=== PATIENT | female | born 1985 | race Caucasian/White ===

== ENCOUNTER → 2018-05-29 | Outpatient (REF) | payer OTHER ==
[2018-06-04 14:18] LABS: HPV HYBRID CAPTURE II Negative (Negative)
== END ==
LOC: M LAB REF 09:16
DX: Z12.4 Encounter for screening for malignant neoplasm of cervix (principal)
CPT/HCPCS: 88142

== ENCOUNTER → 2020-10-25 | Outpatient (REF) | payer OTHER ==
[2020-10-25 13:35] LABS: BASO % 0.5 % (0.0-1.0); EOS # 0.2 10^3/uL (0.0-0.5); EOS % 2.8 % (0.0-3.0); HEMATOCRIT 40.9 % (36.0-47.0); HEMOGLOBIN 13.4 g/dl (12.0-15.5); LYMPH % 34.7 % (24.0-44.0); MEAN CORPUSCULAR HEMOGLOBIN 28.8 pg (27.0-33.0); MEAN CORPUSCULAR HGB CONC 32.8 g/dl (32.0-36.5); MONO # 0.6 10^3/uL (0.0-0.8); MONO % 10.6 % (0.0-5.0); NEUTROPHILS # 2.9 10^3/uL (1.5-8.5); NEUTROPHILS % 51.4 % (36.0-66.0); PLATELET COUNT, AUTOMATED 286 10^3/uL (150-450); RED BLOOD COUNT 4.65 10^6/uL (4.00-5.40); WHITE BLOOD COUNT 5.7 10^3/uL (4.0-10.0)
[2020-10-25 14:10] LABS: ALBUMIN 4.1 GM/DL (3.2-5.2); ALT/SGPT 22 U/L (12-78); BILIRUBIN,TOTAL 0.3 MG/DL (0.2-1.0); BLOOD UREA NITROGEN 17 MG/DL (7-18); CALCIUM LEVEL 8.9 MG/DL (8.5-10.1); CARBON DIOXIDE LEVEL 27 MEQ/L (21-32); CHLORIDE LEVEL 104 MEQ/L (98-107); CHOLESTEROL LEVEL 225 MG/DL (<200); CHOLESTEROL RISK RATIO 3.813 (<5); CREATININE FOR GFR 0.75 MG/DL (0.55-1.30); FREE T4 1.11 NG/DL (0.76-1.46); GLOMERULAR FILTRATION RATE > 60.0 (>60); GLUCOSE, FASTING 82 MG/DL (70-100); HDL CHOLESTEROL 59 MG/DL (>40); LDL CHOLESTEROL 147 MG/DL (<100); NON-HDL-C 166 MG/DL; POTASSIUM SERUM 3.8 MEQ/L (3.5-5.1); SODIUM LEVEL 142 MEQ/L (136-145); TRIGLYCERIDES LEVEL 95 MG/DL (<150)
[2020-10-25 15:08] LABS: TOTAL 25(OH) VITAMIN D 17.2 NG/ML (30.0-100.0)
[2020-10-25 16:19] LABS: HEMOGLOBIN A1c 5.4 %
== END ==
LOC: M LAB REF 12:52
PROVIDERS: ATTEND Nurse Practitioner Family
DX: F41.9 Anxiety disorder, unspecified (principal); E66.9 Obesity, unspecified; E55.9 Vitamin D deficiency, unspecified; Z13.228 Encounter for screening for other metabolic disorders

== ENCOUNTER → 2021-03-08 | Outpatient (CLI) | payer OTHER ==
--- NOTE | 2021-03-08 11:50 | PFTRPT ---
Site: [facility], [address] [place], [address] ID: [id number] Name: STEPHON ROMO Visit Date: 03/08/2021 Second ID: [id number] Referring Doctor: Aixa Toscano M.D. Reviewing Doctor: Jeff Velez MD V[employer]isher [employer]: Syed CHRISTIAN RRT Age: 35 : 1985 Sex: Female Race: Height: 62.00 Inches Weight: 171.00 Lbs BSA: 1.79 Order IDs: [id number] Requested Test(s): <RESP-PFT.PFT B/A> Diagnosis: J45.991 test meet the ATS standards for acceptability and repeatability. Pt was given four puffs of albuterol for post bronchodilator. Review Status: Not Reviewed Pre-Bronch Post-Bronch Pred Actual %Pred Actual %Chng SPIROMETRY FVC (L) 3.50 4.05 115 4.07 FEV1 (L) 2.92 3.22 110 3.33 3 FEV1/FVC (%) 83 79 95 82 2 FEF 25% (L/sec) 5.37 6.21 115 5.48 -11 FEF 50% (L/sec) 4.35 3.72 85 4.58 23 FEF 75% (L/sec) 1.78 1.23 69 1.58 28 FEF 25-75% (L/sec) 3.18 2.96 93 3.56 20 FEF Max (L/sec) 6.71 6.25 93 5.48 -12 FIVC (L) 3.95 4.04 2 FIF 50% (L/sec) 3.99 3.28 82 4.41 34 FIF Max (L/sec) 3.66 4.42 20 Expiratory Time (sec) 5.56 7.80 40 Back Extrap Vol (L) 0.10 0.14 40 Time To FEFmax (sec) 0.143 0.196 37
== END ==
LOC: M CARPUL 11:28
PROVIDERS: ATTEND Pediatrics
DX: J45.991 Cough variant asthma (principal)

== ENCOUNTER 2021-08-29 17:52 | Emergency (ER) | payer OTHER ==
[~2021-08-29] VITALS: Ht 157.5 cm; Wt 68.0 kg
[2021-08-30 05:06] LABS: HEMATOCRIT 45.2 % (36.0-47.0); HEMOGLOBIN 14.8 g/dl (12.0-15.5); MEAN CORPUSCULAR HEMOGLOBIN 28.6 pg (27.0-33.0); MEAN CORPUSCULAR HGB CONC 32.7 g/dl (32.0-36.5); MEAN CORPUSCULAR VOLUME 87.3 fl (80.0-96.0); PLATELET COUNT, AUTOMATED 134 10^3/uL (150-450); RED BLOOD COUNT 5.18 10^6/uL (4.00-5.40); WHITE BLOOD COUNT 3.1 10^3/uL (4.0-10.0)
[2021-08-30 05:15] LABS: ALBUMIN 3.7 GM/DL (3.2-5.2); ALT/SGPT 22 U/L (12-78); BILIRUBIN,TOTAL 0.3 MG/DL (0.2-1.0); BLOOD UREA NITROGEN 18 MG/DL (7-18); C REACTIVE PROTEIN QUANTITATIV 1.58 MG/DL (0.00-0.30); CALCIUM LEVEL 8.4 MG/DL (8.5-10.1); CARBON DIOXIDE LEVEL 29 MEQ/L (21-32); CHLORIDE LEVEL 108 MEQ/L (98-107); CREATININE FOR GFR 0.62 MG/DL (0.55-1.30); GLOMERULAR FILTRATION RATE > 60.0 (>60); GLUCOSE, FASTING 110 MG/DL (70-100); LDH LACTATE DEHYDROGENASE 337 U/L (84-246); MAGNESIUM LEVEL 2.2 MG/DL (1.8-2.4); POTASSIUM SERUM 3.7 MEQ/L (3.5-5.1); SODIUM LEVEL 143 MEQ/L (136-145); TOTAL PROTEIN 7.5 GM/DL (6.4-8.2)
[2021-08-30 05:38] VITALS: O2SAT 96
[2021-08-30] MEDS ORDERED: ROBI1LIQ9 PO (05:39)
[2021-08-30 05:43] LABS: ATYPICAL LYMPH 5 % (0-5); LYMPHOCYTES 26 % (16-44); MONOCYTES 13 % (0-5); NEUTROPHILS 55 % (28-66); PLATELET ESTIMATE NORMAL (NORMAL)
[2021-08-30 05:46] VITALS: BP 148/95
== END 2021-08-30 05:59 | disposition home or self-care (01) ==
LOC: M ED 17:52
DX: J12.82 Pneumonia due to coronavirus disease 2019 (principal); U07.1 COVID-19

== ENCOUNTER → 2021-09-07 | Outpatient (CLI) | payer OTHER ==
[~2021-09-07] MED LIST: ROBI1LIQ9 PO
--- NOTE | 2021-09-08 05:14 | REP ---
INDICATION: ABNORMAL FINDING OF LUNG FIELD COMPARISON: 08/30/2021 TECHNIQUE: PA and lateral. FINDINGS: There is continued airspace disease and possible underlying nodule in the periphery of the left mid to lower lung zone which requires further investigation. Remainder of lung mayberry appear well aerated and clear. Mediastinum and cardiac silhouette are normal. Skeletal structures are intact. IMPRESSION: Area of airspace disease and possible underlying nodule in the left mid to lower lung zone. Short-term follow-up and or contrast-enhanced chest CT should be considered for further investigation. <Electronically signed by Tanner Davis > 09/08/21 0510
== END ==
LOC: M WUC 10:56
PROVIDERS: ATTEND Pediatrics
DX: R91.8 Other nonspecific abnormal finding of lung field (principal)

== ENCOUNTER → 2021-09-08 | Outpatient (CLI) | payer OTHER ==
[~2021-09-08] MED LIST changes: +ISOVUE-370 76% 100ML VIAL As Ordered ONE
--- NOTE | 2021-09-08 13:42 | REP ---
INDICATION: ELEVATED D DIMER. COMPARISON: Chest 09/07/2021. TECHNIQUE: CT angiogram chest performed following the intravenous administration of 100 cc of Isovue 370. Sagittal and coronal reconstruction images are performed. FINDINGS: Lungs: Mild patchy infiltrates are seen in both lower lobes, the right middle lobe and in the lingula. Mediastinum: No adenopathy. Pulmonary arteries: No evidence of pulmonary embolism. Jes[place]: No adenopathy. Axilla: No adenopathy. Pleura: No effusion. Heart: Not enlarged. Thoracic aorta: No aneurysm or dissection. Upper abdominal structures: Unremarkable. Visualized osseous structures: There are mild degenerative changes of the spine without compression deformity. IMPRESSION: No CT evidence of pulmonary embolism. Mild patchy infiltrates are seen in both lower lobes, the right middle lobe and in the lingula <Electronically signed by Douglas Torres > 09/08/21 [id number]
== END ==
LOC: M RAD 12:14
PROVIDERS: ATTEND Pediatrics
DX: R79.1 Abnormal coagulation profile (principal); Z86.16 Personal history of COVID-19
CPT/HCPCS: 71275; Q9967

== ENCOUNTER → 2022-05-30 | Outpatient (REF) | payer OTHER ==
[~2022-05-30] MED LIST changes: -ISOVUE-370 76% 100ML VIAL As Ordered ONE
== END ==
LOC: M LAB REF 20:57
PROVIDERS: ATTEND Physician Assistant
DX: R50.9 Fever, unspecified (principal); R52 Pain, unspecified

== ENCOUNTER 2022-06-08 10:28 | Emergency (ER) | payer OTHER ==
[~2022-06-08] VITALS: Ht 157.5 cm; Wt 60.5 kg
[2022-06-08] MEDS ORDERED: KETOROLAC 30 MG/ML 1ML VIAL IM ONE (14:10)
[2022-06-08] MEDS ORDERED: PROPARACAINE 0.5% OPHTH SOL 15ML OS ONE (14:15)
[2022-06-08 15:00] VITALS: BP 124/69
== END 2022-06-08 15:26 | disposition home or self-care (01) ==
LOC: M ED 10:28
DX: H11.32 Conjunctival hemorrhage, left eye (principal); S06.0X0A Concussion without loss of consciousness, initial encounter; S00.83XA Contusion of other part of head, initial encounter; W01.0XXA Fall on same level from slipping, tripping and stumbling without subsequent striking against object, initial encounter; Y92.89 Other specified places as the place of occurrence of the external cause; J45.909 Unspecified asthma, uncomplicated
CPT/HCPCS: 70450; 70486; 96372; 99283; J1885

== ENCOUNTER → 2022-07-11 | Outpatient (REF) | payer OTHER | LOC: M LAB REF 17:20 | PROVIDERS: ATTEND Pediatrics | DX: Z12.4 Encounter for screening for malignant neoplasm of cervix (principal) ==

== ENCOUNTER → 2023-08-28 | Outpatient (REF) | payer OTHER | LOC: M LAB REF 16:19 | PROVIDERS: ATTEND Pediatrics | DX: Z11.1 Encounter for screening for respiratory tuberculosis (principal) ==

== ENCOUNTER 2025-04-27 16:20 | Emergency (ER) | payer OTHER ==
[~2025-04-27] VITALS: Ht 175.3 cm; Wt 75.6 kg
[~2025-04-27 16:20] MED LIST changes: +AMOX875T2 PO
[2025-04-27 20:05] LABS: BASO # 0.0 10^3/uL (0.0-0.2); BASO % 0.7 % (0.0-1.0); EOS # 0.1 10^3/uL (0.0-0.5); EOS % 1.8 % (0.0-3.0); LYMPH # 1.9 10^3/uL (1.5-5.0); LYMPH % 32.2 % (24.0-44.0); MONO # 0.5 10^3/uL (0.0-0.8); MONO % 7.7 % (2.0-8.0); NEUTROPHILS # 3.4 10^3/uL (1.5-8.5); NEUTROPHILS % 57.4 % (36.0-66.0); PLATELET COUNT, AUTOMATED 235 10^3/uL (150-450)
[2025-04-27 20:16] LABS: ERYTHROCYTE SEDIMENTATION RATE 12 mm/hr (0-20)
[2025-04-27 20:17] LABS: INR 0.91
[2025-04-27 20:28] LABS: CK-MB VALUE MASS 2.8 NG/ML (<3.6); HCG, SERUM QUALITATIVE NEGATIVE (NEGATIVE)
[2025-04-27 20:31] LABS: C REACTIVE PROTEIN QUANTITATIV < 0.50 MG/DL (<1.0)
[2025-04-27 20:33] LABS: FREE T4 0.99 NG/DL (0.89-1.76)
[2025-04-27 20:38] LABS: ALT/SGPT 16 U/L (7.0-40); AST/SGOT 25 U/L (<34); CALCIUM LEVEL 8.4 MG/DL (8.5-10.1); CARBON DIOXIDE LEVEL 24 MMOL/L (20-31); CHLORIDE LEVEL 107 MMOL/L (98-107); CPK CREATINE PHOSPHOKINASE 254 U/L (34-145); CREATININE FOR GFR 0.74 MG/DL (0.55-1.30); GLOMERULAR FILTRATION RATE > 90.0 (>60); MB/CK RELATIVE INDEX 1.10 (< OR =4); POTASSIUM SERUM 3.9 MMOL/L (3.5-5.1); SODIUM LEVEL 145 MMOL/L (136-145)
[2025-04-27 21:28] VITALS: BP 148/90; TEMP 97.7; O2SAT 100
[2025-04-27] MEDS ORDERED: T E MIS MC (21:35)
[2025-04-27 21:44] LABS: CK-MB VALUE MASS 2.2 NG/ML (<3.6)
[2025-04-27 21:45] LABS: CPK CREATINE PHOSPHOKINASE 212 U/L (34-145); MB/CK RELATIVE INDEX 1.03 (< OR =4)
== END 2025-04-27 21:56 | disposition home or self-care (01) ==
LOC: M ED 16:20
DX: R22.43 Localized swelling, mass and lump, lower limb, bilateral (principal); R00.1 Bradycardia, unspecified; I10 Essential (primary) hypertension; J45.909 Unspecified asthma, uncomplicated; Z91.040 Latex allergy status